=== PATIENT | female | born 1985 | race African-American/Black ===

== ENCOUNTER 2017-12-12 14:50 | Emergency (ER) | payer OTHER ==
[~2017-12-12] VITALS: Ht 175.3 cm; Wt 86.2 kg
[~2017-12-12 14:50] MED LIST: APAP500 PO; IBUPROFEN 600600 M1 PO; NORCO 5-325 TA1 EACH PO; PRENATAL PO
[2017-12-12] MEDS ORDERED: NAPROSYN500 MG PO (15:55)
== END 2017-12-12 16:12 | disposition home or self-care (01) ==
LOC: ER 14:50
DX: S46.911A Strain of unspecified muscle, fascia and tendon at shoulder and upper arm level, right arm, initial encounter (principal); S50.11XA Contusion of right forearm, initial encounter; W01.0XXA Fall on same level from slipping, tripping and stumbling without subsequent striking against object, initial encounter; Y93.89 Activity, other specified; Y92.89 Other specified places as the place of occurrence of the external cause; Y99.8 Other external cause status

== ENCOUNTER 2020-12-27 10:24 | Emergency (ER) | payer OTHER ==
[~2020-12-27] VITALS: Ht 177.8 cm; Wt 108.9 kg
[~2020-12-27 10:24] MED LIST changes: +NAPROSYN500 MG PO
[2020-12-27 11:30] LABS: URINE BILIRUBIN NEGATIVE (Negative); URINE BLOOD NEGATIVE (Negative); URINE CLARITY CLEAR; URINE COLOR YELLOW; URINE GLUCOSE-RANDOM* NEGATIVE (Negative); URINE KETONES NEGATIVE (Negative); URINE LEUKOCYTES-REFLEX NEGATIVE (Negative); URINE NITRITE-REFLEX NEGATIVE (Negative); URINE PROTEIN (DIPSTICK) NEGATIVE (Negative); URINE UROBILINOGEN 0.2 E.U./dl (0.2-1.0)
[2020-12-27 13:34] LABS: ABSOLUTE NEUTROPHILS 4.8 thou/uL (1.4-8.2); BASOPHILS 0.3 % (0.0-2.0); EOSINOPHILS 0.4 % (0.0-3.0); HEMATOCRIT 40.5 % (37.0-47.0); LYMPHOCYTES 27.8 % (24.0-44.0); MCH 37.5 pg (26.0-34.0); MCHC 34.7 g/dL (28.0-37.0); MCV 108.2 fL (80.0-100.0); MONOCYTES 5.2 % (1.0-8.0); PLATELET COUNT 315 thou/uL (150-400); POLYS 66.3 % (36.0-66.0); RBC 3.74 mil/uL (4.20-5.00); RDW 13.1 % (10.5-14.5); WBC 7.3 thou/uL (4.0-11.0)
[2020-12-27 13:43] LABS: CALCIUM 9.2 mg/dL (8.5-10.1); CREATININE 1.1 mg/dL (0.6-1.0); POTASSIUM 3.6 mmol/L (3.5-5.1)
[2020-12-27 13:49] LABS: TOTAL BILIRUBIN 0.4 mg/dL (0.2-1.0); TOTAL PROTEIN 7.8 g/dL (6.4-8.2)
[2020-12-27 14:35] VITALS: BP 132/54
[2020-12-27] MEDS ORDERED: HYDROCODON-ACE1 EAC7 PO (15:24)
[2020-12-27] MEDS ORDERED: FLAGYL500 M1 PO (15:57)
== END 2020-12-27 16:20 | disposition home or self-care (01) ==
LOC: ER 10:24
PROVIDERS: Emergency Medicine; Physician Assistant
DX: N76.0 Acute vaginitis (principal); B96.89 Other specified bacterial agents as the cause of diseases classified elsewhere; N94.6 Dysmenorrhea, unspecified